=== PATIENT | male | born 1970 | race Caucasian/White ===

== ENCOUNTER 2019-06-12 09:20 | Inpatient (IN) | payer BC ==
[2019-06-12] MEDS ORDERED: SODIUM CHLORIDE 0.9% 500 ML 500 ML IV STA (09:35)
--- NOTE | 2019-06-12 09:58 | ED ---
Arrhythmia/Palpitations HPI - General Chief Complaint: Arrhythmia/Palpitations Stated Complaint: palpitations Time Seen by Provider: 06/12/19 09:34 Source: patient, family, RN notes reviewed Mode of arrival: wheelchair Limitations: no limitations - History of Present Illness Initial Comments: 49-year-old male presents emergency Department chief complaint palpitations. Patient states it woke him up early this morning. Patient's states that it seemed to be irregular. Patient reports that he feeling that it was heart racing. Patient does have a history of high blood pressure did not take his dose yesterday blood pressure was elevated this morning he has taken his morning dose at this time. Patient reports no chest pain, shortness breath, dizziness, nausea, vomiting or diarrhea. Patient did have an episode of diaphoresis though he states he was in the car when this happened. Patient denies any blurred vision, numbness tingling, headache, blurred vision patient states he just feels off. - Related Data Allergies Allergy/AdvReac Type Severity Reaction Status Date / Time No Known Allergies Allergy Verified 06/12/19 09:27 Review of Systems ROS Statement: Those systems with pertinent positive or pertinent negative responses have been documented in the HPI. ROS Other: All systems not noted in ROS Statement are negative. Past Medical History Past Medical History: Diabetes Mellitus, Hypertension History of Any Multi-Drug Resistant Organisms: None Reported Additional Past Surgical History / Comment(s): foot bone removed, plantar fascitis Past Psychological History: No Psychological Hx Reported Smoking Status: Never smoker Past Alcohol Use History: Occasional Past Drug Use History: None Reported General Exam Limitations: no limitations General appearance: alert, in no apparent distress Head exam: Present: atraumatic, normocephalic, normal inspection Eye exam: Present: normal appearance, PERRL, EOMI. Absent: scleral icterus, conjunctival injection, periorbital swelling ENT exam: Present: normal exam, normal oropharynx, mucous membranes moist Neck exam: Present: normal inspection, full ROM. Absent: tenderness, meningismus, lymphadenopathy Respiratory exam: Present: normal lung sounds bilaterally. Absent: respiratory distress, wheezes, rales, rhonchi, stridor Cardiovascular Exam: Present: tachycardia, irregular rhythm, normal heart sounds. Absent: regular rate, normal rhythm, systolic murmur, diastolic murmur, rubs, gallop, clicks GI/Abdominal exam: Present: soft, normal bowel sounds. Absent: distended, tenderness, guarding, rebound, rigid Neurological exam: Present: alert, oriented X3, CN II-XII intact, reflexes normal. Absent: motor sensory deficit Skin exam: Present: warm, dry, intact, normal color. Absent: rash Course Vital Signs 06/12/19 09:27 Temperature 97.4 F L Pulse Rate 77 Respiratory 18 Rate Blood Pressure 157/93 O2 Sat by Pulse 100 Oximetry EKG Findings - EKG Comments: EKG Findings:: EKG performed at 10:04 A. fib with RVR rate 150 QRS 72 QT status [id number] Medical Decision Making - Medical Decision Making 49-year-old male presents emergency Department for palpitations. Patient found to be in A. fib with RVR. Cardizem was ordered. Patient has had proximal A. fib in emergency department. Patient will be admitted on heparin per cardiology evaluation - Lab Data Result diagrams: 06/12/19 09:51 06/12/19 09:51 Lab Results 06/12/19 06/12/19 06/12/19 Range/Units 09:51 09:51 09:51 WBC 8.7 (3.8-10.6) k/uL RBC 5.70 (4.30-5.90) m/uL Hgb 16.2 (13.0-17.5) gm/dL Hct 48.1 (39.0-53.0) % MCV 84.5 (80.0-100.0) fL MCH 28.4 (25.0-35.0) pg MCHC 33.7 (31.0-37.0) g/dL RDW 14.5 (11.5-15.5) % Plt Count 276 (150-450) k/uL Neutrophils % 74 % Lymphocytes % 16 % Monocytes % 6 % Eosinophils % 1 % Basophils % 1 % Neutrophils # 6.5 (1.3-7.7) k/uL Lymphocytes # 1.4 (1.0-4.8) k/uL Monocytes # 0.5 (0-1.0) k/uL Eosinophils # 0.1 (0-0.7) k/uL Basophils # 0.1 (0-0.2) k/uL PT 10.7 (9.0-12.0) sec INR 1.0 (<1.2) APTT 29.6 (22.0-30.0) sec Sodium 141 (137-145) mmol/L Potassium 4.0 (3.5-5.1) mmol/L Chloride 105 (98-107) mmol/L Carbon Dioxide 28 (22-30) mmol/L Anion Gap 8 mmol/L BUN 19 (9-20) mg/dL Creatinine 0.95 (0.66-1.25) mg/dL Est GFR (CKD-EPI)AfAm >90 (>60 ml/min/1.73 sqM) Est GFR (CKD-EPI)NonAf >90 (>60 ml/min/1.73 sqM) Glucose 142 H (74-99) mg/dL Calcium 9.3 (8.4-10.2) mg/dL Magnesium 2.0 (1.6-2.3) mg/dL Total Bilirubin 1.7 H (0.2-1.3) mg/dL AST 25 (17-59) U/L ALT 26 (21-72) U/L Alkaline Phosphatase 55 (38-126) U/L Troponin I (0.000-0.034) ng/mL Total Protein 7.0 (6.3-8.2) g/dL Albumin 4.6 (3.5-5.0) g/dL 06/12/19 Range/Units 09:51 WBC (3.8-10.6) k/uL RBC (4.30-5.90) m/uL Hgb (13.0-17.5) gm/dL Hct (39.0-53.0) % MCV (80.0-100.0) fL MCH (25.0-35.0) pg MCHC (31.0-37.0) g/dL RDW (11.5-15.5) % Plt Count (150-450) k/uL Neutrophils % % Lymphocytes % % Monocytes % % Eosinophils % % Basophils % % Neutrophils # (1.3-7.7) k/uL Lymphocytes # (1.0-4.8) k/uL Monocytes # (0-1.0) k/uL Eosinophils # (0-0.7) k/uL Basophils # (0-0.2) k/uL PT (9.0-12.0) sec INR (<1.2) APTT (22.0-30.0) sec Sodium (137-145) mmol/L Potassium (3.5-5.1) mmol/L Chloride (98-107) mmol/L Carbon Dioxide (22-30) mmol/L Anion Gap mmol/L BUN (9-20) mg/dL Creatinine (0.66-1.25) mg/dL Est GFR (CKD-EPI)AfAm (>60 ml/min/1.73 sqM) Est GFR (CKD-EPI)NonAf (>60 ml/min/1.73 sqM) Glucose (74-99) mg/dL Calcium (8.4-10.2) mg/dL Magnesium (1.6-2.3) mg/dL Total Bilirubin (0.2-1.3) mg/dL AST (17-59) U/L ALT (21-72) U/L Alkaline Phosphatase (38-126) U/L Troponin I <0.012 (0.000-0.034) ng/mL Total Protein (6.3-8.2) g/dL Albumin (3.5-5.0) g/dL Critical Care Time Critical Care Time: Yes Total Critical Care Time: 35 Critical Care Time: Total 35 minutes of critical care time was initially evaluated patient, reviewed medications, review past medical history. Labs were ordered including CBC, CMP, troponin, EKG, chest x-ray. EKG shows evidence of A. fib RVR Cardizem was ordered 5 mg bolus of 5 mg per hour drip. Patient did convert in the emergency department. Patient's case discussed with admitting physician in which the patient remained for proximal A. fib, A. fib RVR with cardiology evaluation Disposition Clinical Impression: Paroxysmal atrial fibrillation with RVR Disposition: ADMITTED IP TO THIS HOSP Condition: Stable Referrals: Tristian Whiting DO [Primary Care Provider] - 1-2 days
[2019-06-12] MEDS ORDERED: HEPARIN SODIUM,PORCINE 5,000 UNIT/ML 1 ML VIAL IV ONE (10:01)
[2019-06-12] MEDS ORDERED: HEPARIN SODIUM,PORCINE 5,000 UNIT/ML 1 ML VIAL IV PRN ×2 (10:01→17:30)
[2019-06-12] MEDS ORDERED: DILTIAZEM DRIP BOLUS FROM BAG 1 MG SOLN IV ONE (10:02)
--- NOTE | 2019-06-12 10:17 | XR ---
EXAMINATION TYPE: XR chest 2V DATE OF EXAM: 06/12/2019 COMPARISON: None INDICATION: Dysrhythmia heart palpitations diaphoretic TECHNIQUE: Frontal and lateral views of the chest are obtained. FINDINGS: The heart size is normal. The pulmonary vasculature is normal. The lungs are clear. IMPRESSION: 1. No acute pulmonary process.
[2019-06-12] MEDS: HEPARIN SOD,PORK IN 0.45% NACL 25,000 UNIT in 0.45% NACL 1 250ML.BAG IV SCH ×2 (10:20→10:22)
[2019-06-12 10:24] LABS: ALT 26 U/L (21-72); AST 25 U/L (17-59); African American GFR (CKD) >90 (>60 ml/min/1.73 sqM); Albumin 4.6 g/dL (3.5-5.0); Alkaline Phosphatase 55 U/L (38-126); Anion Gap 8 mmol/L; Blood Urea Nitrogen 19 mg/dL (9-20); Calcium 9.3 mg/dL (8.4-10.2); Carbon Dioxide 28 mmol/L (22-30); Chloride 105 mmol/L (98-107); Glucose 142 mg/dL (74-99); Sodium 141 mmol/L (137-145); Total Bilirubin 1.7 mg/dL (0.2-1.3)
[2019-06-12 10:28] LABS: Basophils # (A) 0.1 k/uL (0-0.2); Basophils % (A) 1 %; Eosinophils # (A) 0.1 k/uL (0-0.7); Eosinophils % (A) 1 %; HCT 48.1 % (39.0-53.0); HGB 16.2 gm/dL (13.0-17.5); Lymphocytes # (A) 1.4 k/uL (1.0-4.8); Lymphocytes % (A) 16 %; MCH 28.4 pg (25.0-35.0); MCHC 33.7 g/dL (31.0-37.0); MCV 84.5 fL (80.0-100.0); Mean Platelet Volume 6.4; Monocytes # (A) 0.5 k/uL (0-1.0); Monocytes % (A) 6 %; Neutrophils # (A) 6.5 k/uL (1.3-7.7); Neutrophils % (A) 74 %; Platelet Count 276 k/uL (150-450); RDW 14.5 % (11.5-15.5); WBC 8.7 k/uL (3.8-10.6)
[2019-06-12] MEDS: DILTIAZEM 125 MG in SODIUM CHLORIDE 0.9% 100 ML IV SCH (10:32)
[2019-06-12 10:33] LABS: Partial Thromboplastin Time 29.6 sec (22.0-30.0); Prothrombin Time 10.7 sec (9.0-12.0)
[2019-06-12] MEDS ORDERED: NITROGLYCERIN SL TABS 0.4 MG TAB SUBLINGUAL PRN (10:43)
[2019-06-12 13:48] VITALS: BMI 26.6
--- NOTE | 2019-06-12 13:50 | P.HPIM ---
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 fib atrial fibrillation. Patient has history of hypertension used to be diabetic and not diabetic anymore since he lost the weight intentionally. Patient takes losartan and home. Patient denied any shortness of breath lightheadedness. Patient denied any chest pain. EKG showed A. fib with rapid and regular rate patient was not given Cardizem and spontaneously converted to sinus rhythm. Patient the had another episode of paroxysmal A. fib I am starting him on beta kayleen patient was started on heparin. Patient's LUTHER D VASC score 1.echocardiogram will be obtained. He does not have any signs or symptoms of sepsis at this time. Review of Systems REVIEW OF SYSTEMS: CONSTITUTIONAL: No fever, no malaise, no fatigue. HEENT: No recent visual problems or hearing problems. Denied any sore throat. CARDIOVASCULAR: No chest pain, orthopnea, PND, no syncope. PULMONARY: No shortness of breath, no cough, no hemoptysis. GASTROINTESTINAL: No diarrhea, no nausea, no vomiting, no abdominal pain. NEUROLOGICAL: No headaches, no weakness, no numbness. HEMATOLOGICAL: Denies any bleeding or petechiae. GENITOURINARY: Denies any burning micturition, frequency, or urgency. MUSCULOSKELETAL/RHEUMATOLOGICAL: Denies any joint pain, swelling, or any muscle pain. ENDOCRINE: Denies any polyuria or polydipsia. The rest of the 14-point review of systems is negative. Past Medical History Past Medical History: Diabetes Mellitus, Hypertension History of Any Multi-Drug Resistant Organisms: None Reported Additional Past Surgical History / Comment(s): foot bone removed, plantar fascitis Past Psychological History: No Psychological Hx Reported Smoking Status: Never smoker Past Alcohol Use History: Occasional Past Drug Use History: None Reported Medications and Allergies Home Medications Medication Instructions Recorded Confirmed Type Losartan Potassium [Cozaar] 50 mg PO DAILY 06/12/19 06/12/19 History Magnesium Oxide 400 mg PO DAILY 06/12/19 06/12/19 History Meloxicam [Mobic] 15 mg PO DAILY 06/12/19 06/12/19 History Allergies Allergy/AdvReac Type Severity Reaction Status Date / Time No Known Allergies Allergy Verified 06/12/19 10:47 Physical Exam Vitals: Vital Signs Temp Pulse Resp BP Pulse Ox 06/12/19 12:36 98.8 F 78 18 132/97 99 06/12/19 11:30 82 18 123/101 98 06/12/19 10:45 89 18 129/94 99 06/12/19 10:00 133 H 119/91 98 06/12/19 09:27 97.4 F L 77 18 157/93 100 Intake and Output 06/11/19 06/12/19 06/12/19 22:59 06:59 14:59 Other: Weight 88.904 kg PHYSICAL EXAMINATION: GENERAL: The patient is alert and oriented x3, not in any acute distress. Well developed, well nourished. HEENT: Pupils are round and equally reacting to light. EOMI. No scleral icterus. No conjunctival pallor. Normocephalic, atraumatic. No pharyngeal erythema. No thyromegaly. CARDIOVASCULAR: S1 and S2 present. No murmurs, rubs, or gallops. PULMONARY: Chest is clear to auscultation, no wheezing or crackles. ABDOMEN: Soft, nontender, nondistended, normoactive bowel sounds. No palpable organomegaly. MUSCULOSKELETAL: No joint swelling or deformity. EXTREMITIES: No cyanosis, clubbing, or pedal edema. NEUROLOGICAL: Gross neurological examination did not reveal any focal deficits. SKIN: No rashes. Results CBC & Chem 7: 06/12/19 09:51 06/12/19 09:51 Labs: Abnormal Lab Results - Last 24 Hours (Table) 06/12/19 Range/Units 09:51 Glucose 142 H (74-99) mg/dL Total Bilirubin 1.7 H (0.2-1.3) mg/dL Assessment and Plan Plan: -new-onset atrial fibrillation with rapid ventricular rate: Patient will continue on anticoagulation monitored overnight patient spontaneously converted to sinus rhythm presently sinus rhythm with rate controlled patient was started on beta kayleen because of his couple episodes of in and out of A. fib which is probably proximal A. fib anticoagulation patient as per cardiology and patient, it appears like patient may just need aspirin -Hypertensionlosartan will be held and will monitor the blood pressure since patient is being started on beta kayleen hopefully will not require losartan and since he is losing weight may not require antidepressant medications. -History of diabetes mellitus not a medically more since his weight loss. will not require pharmacologic GI prophylaxis
[2019-06-12] MEDS: METOPROLOL TARTRATE 25 MG TAB PO SCH ×2 (13:57→21:34)
[2019-06-12 19:30] LABS: Glucose,Whole Blood 98 mg/dL (75-99)
[2019-06-13 04:38] LABS: Mean Platelet Volume 6.3; Platelet Count 267 k/uL (150-450)
[2019-06-13 04:40] VITALS: RESP 15
[2019-06-13 04:58] LABS: Cholesterol 159 mg/dL (<200); HDL Cholesterol 46 mg/dL (40-60); LDL Cholesterol,Calculated 90 mg/dL (0-99); Triglycerides 115 mg/dL (<150)
[2019-06-13 06:08] LABS: Glucose,Whole Blood 114 mg/dL (75-99)
--- NOTE | 2019-06-13 08:10 | P.CRDCN ---
<David Castro - Last Filed: 06/13/19 08:09> Review of Systems Review of systems Chest x-ray within normal limits Twelve-lead ECG on admission shows atrial fibrillation with RVR ventricular rates of 150 beats a minute narrow QRS Patient presented to the emergency room complaining of palpitations which woke him up on the morning of the admission. His rhythm seems to be irregular and he felt his heart was racing. His a history of hypertension. He denied any chest discomfort shortness of breath dizziness nausea He did have an episode of diaphoresis White count 8.7, hemoglobin 16.2, sodium 141 potassium 4.0 BUN 19 creatinine 0.95 Troponins normal, TSH 1.38 LDL 90, total cholesterol 159, triglycerides 115 and HDL 46 Past Medical History Past Medical History: Diabetes Mellitus, Hypertension History of Any Multi-Drug Resistant Organisms: None Reported Additional Past Surgical History / Comment(s): foot bone removed, plantar fascitis Past Anesthesia/Blood Transfusion Reactions: No Reported Reaction Past Psychological History: No Psychological Hx Reported Smoking Status: Never smoker Past Alcohol Use History: Occasional Past Drug Use History: None Reported - Past Family History Father Family Medical History: AFIB Medications and Allergies Home Medications Medication Instructions Recorded Confirmed Type Losartan Potassium [Cozaar] 50 mg PO DAILY 06/12/19 06/12/19 History Magnesium Oxide 400 mg PO DAILY 06/12/19 06/12/19 History Meloxicam [Mobic] 15 mg PO DAILY 06/12/19 06/12/19 History Apixaban [Eliquis] 5 mg PO BID #60 tab 06/13/19 Rx Hydrochlorothiazide [Hydrodiuril] 25 mg PO DAILY #30 tab 06/13/19 Rx Metoprolol Tartrate [Lopressor] 50 mg PO BID PRN 30 Days #60 tab 06/13/19 Rx Allergies Allergy/AdvReac Type Severity Reaction Status Date / Time No Known Allergies Allergy Verified 06/12/19 10:47 Physical Exam Vitals: Vital Signs Temp Pulse Pulse Resp BP BP Pulse Ox 06/13/19 04:30 97.6 F 51 L 15 117/77 98 06/13/19 04:00 65 16 06/13/19 00:00 97.4 F L 65 15 127/71 99 06/12/19 20:00 98.4 F 65 16 122/79 99 06/12/19 16:20 97.8 F 59 L 18 129/87 99 06/12/19 13:00 98.0 F 72 18 128/87 98 06/12/19 12:36 98.8 F 78 18 132/97 99 06/12/19 11:30 82 18 123/101 98 06/12/19 10:45 89 18 129/94 99 06/12/19 10:00 133 H 119/91 98 06/12/19 09:27 97.4 F L 77 18 157/93 100 Intake and Output 06/12/19 06/13/19 06/13/19 22:59 06:59 14:59 Intake Total 74.848 222 Balance 74.848 222 Intake: Intake, IV Titration 74.848 Amount Heparin Sod,Pork in 0.45% 74.848 NaCl 25,000 unit In 0.45 % NaCl 1 250ml.bag @ 11. 25 UNITS/KG/HR 10.002 mls /hr IV .Q24H [facility] Rx#: [id number] Oral 222 Other: Voiding Method Toilet Toilet # Voids 1 1 Weight 97.2 kg Results 06/13/19 04:13 06/12/19 09:51 Cardiac Enzymes 06/12/19 06/12/19 06/12/19 Range/Units 09:51 09:51 16:45 AST 25 (17-59) U/L Troponin I <0.012 <0.012 (0.000-0.034) ng/mL 06/12/19 Range/Units 22:19 AST (17-59) U/L Troponin I <0.012 (0.000-0.034) ng/mL Coagulation 06/12/19 06/12/19 06/12/19 Range/Units 09:51 16:45 22:19 PT 10.7 (9.0-12.0) sec APTT 29.6 43.9 H 70.9 H (22.0-30.0) sec 06/13/19 Range/Units 04:13 PT (9.0-12.0) sec APTT 62.9 H (22.0-30.0) sec Lipids 06/13/19 Range/Units 04:13 Triglycerides 115 (<150) mg/dL Cholesterol 159 (<200) mg/dL HDL Cholesterol 46 (40-60) mg/dL CBC 06/12/19 06/13/19 Range/Units 09:51 04:13 WBC 8.7 (3.8-10.6) k/uL RBC 5.70 (4.30-5.90) m/uL Hgb 16.2 (13.0-17.5) gm/dL Hct 48.1 (39.0-53.0) % Plt Count 276 267 (150-450) k/uL Comprehensive Metabolic Panel 06/12/19 Range/Units 09:51 Sodium 141 (137-145) mmol/L Potassium 4.0 (3.5-5.1) mmol/L Chloride 105 (98-107) mmol/L Carbon Dioxide 28 (22-30) mmol/L BUN 19 (9-20) mg/dL Creatinine 0.95 (0.66-1.25) mg/dL Glucose 142 H (74-99) mg/dL Calcium 9.3 (8.4-10.2) mg/dL AST 25 (17-59) U/L ALT 26 (21-72) U/L Alkaline Phosphatase 55 (38-126) U/L Total Protein 7.0 (6.3-8.2) g/dL Albumin 4.6 (3.5-5.0) g/dL Current Medications Generic Name Dose Route Start Last Admin Trade Name Freq PRN Reason Stop Dose Admin Aspirin 325 mg 06/13/19 09:00 Aspirin PO DAILY [facility] Heparin Sodium (Porcine) 0 unit 06/12/19 17:30 06/12/19 17:48 Heparin IV 2,200 unit PER PROTOCOL PRN Administration Low PTT Protocol Diltiazem HCl 125 mg/ Sodium 125 mls @ 5 mls/hr 06/12/19 10:15 Chloride IV .Q24H [facility] 5 MG/HR Heparin Sodium/Sodium Chloride 250 mls @ 10.002 mls/hr 06/12/19 10:15 06/12/19 17:49 25,000 unit/ Sodium Chloride IV 13.25 units/kg/hr .Q24H [facility] 11.78 mls/hr Titration Protocol 11.25 UNITS/KG/HR Magnesium Oxide 400 mg 06/13/19 09:00 Mag-Ox PO DAILY [facility] Metoprolol Tartrate 25 mg 06/12/19 13:15 06/12/19 21:34 Lopressor PO 25 mg BID [facility] Administration Nitroglycerin 0.4 mg 06/12/19 10:43 Nitrostat SUBLINGUAL Q5M PRN Chest Pain Intake and Output 06/12/19 06/13/19 06/13/19 22:59 06:59 14:59 Intake Total 74.848 222 Balance 74.848 222 Intake: Intake, IV Titration 74.848 Amount Heparin Sod,Pork in 0.45% 74.848 NaCl 25,000 unit In 0.45 % NaCl 1 250ml.bag @ 11. 25 UNITS/KG/HR 10.002 mls /hr IV .Q24H [facility] Rx#: [id number] Oral 222 Other: Voiding Method Toilet Toilet # Voids 1 1 Weight 97.2 kg 06/13/19 04:13 06/12/19 09:51 <Nelda Peterson - Last Filed: 06/13/19 13:38> History of Present Illness History of present illness: This is Nelda Peterson PA-C dictating a consult on this patient The patient was interviewed and examined by me as well as by Dr. Castro Case discussed with Dr. Castro and he agrees with the plan of care IMPRESSION / ASSESSMENT: Atrial fibrillation with RVR, spontaneous conversion to normal sinus rhythm Hypertension, BP elevated at home Diabetes, diet controlled Sleep apnea on CPAP PLAN: CHADS-VASC score = 2, anticoagulation indicated, discussed with patient, start eliquis 5 mg BID, can stop heparin Continue to monitor for more episodes of atrial fibrillation, can use Lopressor 50 mg PO for rate control if needed Start home dose of losartan 50 mg daily, add hydrochlorothiazide 25 mg daily for blood pressure control Stop aspirin, hold metoprolol unless patient goes back into afib with RVR outpatient cardiac workup HPI Patient is a 49-year-old male past medical history of hypertension,diabetes, and sleep apnea on CPAP who presented to the emergency department with complaints of palpitations. He woke up on Thursday night at 3:00 in the morning to use the bathroom and noticed that he felt "funny". He states he felt like his heart was racing. Denies any chest pain, shortness of breath, lightheadedness, dizziness, syncope. He has never had an episode like this before. He states he drinks a glass of water and went back to sleep. When he woke up the next morning he continued to have the same symptoms. He states he checked his blood pressure and it was in the "130s over 100s". His symptoms resolved in the afternoon. The following morning he had another episode of palpitations so he came to the hospital. He was found to be in atrial fibrillation with RVR. He converted spontaneously. Today he feels well, no further episodes of palpitations, denies any chest pain, shortness of breath, dizziness, lightheadedness, syncope. Patient states he drinks about 2-3 beers, 2-3 days a week, does admit to drinking more than usual tonight before his first episode of atrial fibrillation History of smoking, quit 20 years ago ROS: No fevers, chills or rigors, no cough, phlegm or expectoration, no nausea, vomiting or diarrhea, no hematuria, dysuria, no musculoskeletal complaints, no strokes or seizures, no skin lesions. EXAMINATION: Afebrile, pulse 72, blood pressure 115/83, respirations 15, oxygen saturation 97% on room air Patient seen and examined lying comfortably in bed, in no acute distress Heart regular rate and rhythm, normal S1, normal S2, no murmurs appreciated Lungs are clear to auscultation bilaterally, no rhonchi, no wheezing, no crackles No elevated JVD, no carotid bruits appreciated No lower extremity edema REVIEW OF LABS, ECG & MEDICAL DATA Initial EKG revealed atrial fibrillation with RVR Telemetry shows sinus rhythm overnight, no further episodes of atrial fibrillation noted WBC 8.7, hemoglobin 16.2, electrolytes within normal limits, BUN 19, creatinine 0.95, troponin negative 3, TSH within normal limits LDL 90, cholesterol 159, triglycerides 115, HDL 46 Echo showed LV systolic function 60-65%. RV mildly enlarged, no significant v alvular abnormalities Physical Exam Vitals: Vital Signs Temp Pulse Pulse Resp BP BP Pulse Ox 06/13/19 08:00 98.1 F 72 115/83 97 06/13/19 04:30 97.6 F 51 L 15 117/77 98 06/13/19 04:00 65 16 06/13/19 00:00 97.4 F L 65 15 127/71 99 06/12/19 20:00 98.4 F 65 16 122/79 99 06/12/19 16:20 97.8 F 59 L 18 129/87 99 06/12/19 13:00 98.0 F 72 18 128/87 98 06/12/19 12:36 98.8 F 78 18 132/97 99 Intake and Output 06/12/19 06/13/19 06/13/19 22:59 06:59 14:59 Intake Total 74.848 397.152 Balance 74.848 397.152 Intake: Intake, IV Titration 74.848 175.152 Amount Heparin Sod,Pork in 0.45% 74.848 175.152 NaCl 25,000 unit In 0.45 % NaCl 1 250ml.bag @ 11. 25 UNITS/KG/HR 10.002 mls /hr IV .Q24H [facility] Rx#: [id number] Oral 222 Other: Voiding Method Toilet Toilet # Voids 1 1 Weight 97.2 kg Results 06/13/19 04:13 06/12/19 09:51 Cardiac Enzymes 06/12/19 06/12/19 Range/Units 16:45 22:19 Troponin I <0.012 <0.012 (0.000-0.034) ng/mL Coagulation 06/12/19 06/12/19 06/13/19 Range/Units 16:45 22:19 04:13 APTT 43.9 H 70.9 H 62.9 H (22.0-30.0) sec Lipids 06/13/19 Range/Units 04:13 Triglycerides 115 (<150) mg/dL Cholesterol 159 (<200) mg/dL HDL Cholesterol 46 (40-60) mg/dL CBC 06/13/19 Range/Units 04:13 Plt Count 267 (150-450) k/uL Current Medications Generic Name Dose Route Start Last Admin Trade Name Freq PRN Reason Stop Dose Admin Aspirin 325 mg 06/13/19 09:00 06/13/19 08:32 Aspirin PO 325 mg DAILY [facility] Administration Heparin Sodium (Porcine) 0 unit 06/12/19 17:30 06/12/19 17:48 Heparin IV 2,200 unit PER PROTOCOL PRN Administration Low PTT Protocol Diltiazem HCl 125 mg/ Sodium 125 mls @ 5 mls/hr 06/12/19 10:15 06/13/19 11:33 Chloride IV Not Given .Q24H [facility] 5 MG/HR Heparin Sodium/Sodium Chloride 250 mls @ 10.002 mls/hr 06/12/19 10:15 06/13/19 09:33 25,000 unit/ Sodium Chloride IV 13.25 units/kg/hr .Q24H [facility] 11.78 mls/hr Administration Protocol 11.25 UNITS/KG/HR Magnesium Oxide 400 mg 06/13/19 09:00 06/13/19 08:32 Mag-Ox PO 400 mg DAILY [facility] Administration Metoprolol Tartrate 25 mg 06/12/19 13:15 06/13/19 08:32 Lopressor PO 25 mg BID [facility] Administration Nitroglycerin 0.4 mg 06/12/19 10:43 Nitrostat SUBLINGUAL Q5M PRN Chest Pain Intake and Output 06/12/19 06/13/19 06/13/19 22:59 06:59 14:59 Intake Total 74.848 397.152 Balance 74.848 397.152 Intake: Intake, IV Titration 74.848 175.152 Amount Heparin Sod,Pork in 0.45% 74.848 175.152 NaCl 25,000 unit In 0.45 % NaCl 1 250ml.bag @ 11. 25 UNITS/KG/HR 10.002 mls /hr IV .Q24H [facility] Rx#: [id number] Oral 222 Other: Voiding Method Toilet Toilet # Voids 1 1 Weight 97.2 kg 06/13/19 04:13 06/12/19 09:51
[2019-06-13] MEDS: DILTIAZEM 125 MG in SODIUM CHLORIDE 0.9% 100 ML IV SCH ×2 (08:31→11:33)
[2019-06-13] MEDS: METOPROLOL TARTRATE 25 MG TAB PO SCH (08:32)
[2019-06-13] MEDS ORDERED: ASPIRIN 325 MG TAB PO SCH (09:00)
[2019-06-13] MEDS ORDERED: MAGNESIUM OXIDE 400 MG TAB PO SCH (09:00)
[2019-06-13] MEDS: HEPARIN SOD,PORK IN 0.45% NACL 25,000 UNIT in 0.45% NACL 1 250ML.BAG IV SCH (09:33)
--- NOTE | 2019-06-13 10:52 | ECHOF ---
Referral Reason:afib MEASUREMENTS -------- HEIGHT: 182.9 cm WEIGHT: 97.1 kg BP: 117/77 RVIDd: 3.4 cm (< 3.3) IVSd: 1.3 cm (0.6 - 1.1) LVIDd: 4.6 cm (3.9 - 5.3) LVPWd: 1.2 cm (0.6 - 1.1) IVSs: 1.5 cm LVIDs: 3.2 cm LVPWs: 1.9 cm LA Diam: 3.6 cm (2.7 - 3.8) LAESV Index (A-L): 24.39 ml/m Ao Diam: 3.5 cm (2.0 - 3.7) AV Cusp: 2.4 cm (1.5 - 2.6) MV EXCURSION: 13.536 mm (> 18.000) MV EF SLOPE: 57 mm/s (70 - 150) EPSS: 0.7 cm MV E Arias: 0.85 m/s MV DecT: 218 ms MV A Arias: 0.80 m/s MV E/A Ratio: 1.07 RAP: 5.00 mmHg RVSP: 21.28 mmHg FINDINGS -------- Sinus rhythm. This was a technically good study. The left ventricular size is normal. There is mild concentric left ventricular hypertrophy. Overa ll left ventricular systolic function is normal with, an EF between 60 - 65 %. The right ventricle is mildly enlarged. Normal LA size by volume 22+/-6 ml/m2. The right atrium is normal in size. Interatrial and interventricular septum intact. The aortic valve is trileaflet and appears structurally normal. Mild mitral regurgitation is present. Mild tricuspid regurgitation present. Right ventricular systolic pressure is normal at < 35 mmHg. There is no pulmonic regurgitation present. The aortic root size is normal. Normal inferior vena cava with normal inspiratory collapse consistent with estimated right atrial pre ssure of 5 mmHg. The inferior vena cava is mildly dilated. There is no pericardial effusion. CONCLUSIONS -------- 1. Sinus rhythm. 2. This was a technically good study. 3. The left ventricular size is normal. 4. There is mild concentric left ventricular hypertrophy. 5. Overall left ventricular systolic function is normal with, an EF between 60 - 65 %. 6. The right ventricle is mildly enlarged. 7. Normal LA size by volume 22+/-6 ml/m2. 8. The right atrium is normal in size. 9. Interatrial and interventricular septum intact. 10. The aortic valve is trileaflet and appears structurally normal. 11. Mild mitral regurgitation is present. 12. Mild tricuspid regurgitation present. 13. Right ventricular systolic pressure is normal at < 35 mmHg. 14. There is no pulmonic regurgitation present. 15. The aortic root size is normal. 16. Normal inferior vena cava with normal inspiratory collapse consistent with estimated right atrial pressure of 5 mmHg. 17. The inferior vena cava is mildly dilated. 18. There is no pericardial effusion. [employer]: Juliana Gaytan RDCS
[2019-06-13 11:08] VITALS: TEMP 98.1
[2019-06-13 12:12] LABS: Glucose,Whole Blood 118 mg/dL (75-99)
--- NOTE | 2019-06-13 14:24 | P.DS ---
Providers Date of admission: 06/12/19 11:04 Expected date of discharge: 06/13/19 Attending physician: Kevin Bojorquez Consults: 06/12/19 10:43 Consult Physician Urgent Consulting Provider: David Castro Consult Reason/Comments: A. fib Do you want consulting provider notified?: Yes Primary care physician: [facility] Course: Final diagnosis New onset atrial fibrillation with rapid ventricular rate: Patient will be started on Eliquis 5 mg by mouth twice a day per cardiology Hypertension Diabetes mellitus, controlled with diet Discharge disposition The patient is being discharged in a stable condition with guarded prognosis to home and will follow-up with cardiology this week as they discussed. Per cardiology patient will be started on Eliquis for new onset atrial fibrillation, will restart losartan and hydrochlorothiazide, and metoprolol 50 mg twice a day when necessary. History of present illness This is a 49-year-old male who was admitted to the hospital new-onset A. fib with RVR which is resolved. Patient is going to be started on anticoagulation therapy and will follow-up with Dr. Castro as discussed this week. Patient will resume home medications and continue to monitor blood sugars as needed as his diabetes is diet controlled after his 52 pound weight loss. Patient denies any chest pain, shortness of breath, palpitations, or fevers at this time. Patient underwent an echocardiogram this morning which shows no pericardial effusions, ejection fraction between 60 and 65%, mildly enlarged right ventricle possibly due to hypertension, mild regurgitation of the mitral valve is present, and in sinus rhythm. Patient will like to go home today. Patient has been walking the halls in no acute distress and denies any chest pain or palpitations at this time. On exam the vital signs are stable. Cardio S1 and S2 are normal. Respiratory system is clear to auscultation. Abdomen is soft and non-tender. Nervous system shows no focal deficits and gait is steady. Please refer to the medication reconciliation sheet for list of medications. Patient Condition at Discharge: Stable Plan - Discharge Summary New Discharge Prescriptions: New Apixaban [Eliquis] 5 mg PO BID #60 tab Hydrochlorothiazide [Hydrodiuril] 25 mg PO DAILY #30 tab Metoprolol Tartrate [Lopressor] 50 mg PO BID PRN 30 Days #60 tab PRN Reason: See Comments Continue Meloxicam [Mobic] 15 mg PO DAILY Magnesium Oxide 400 mg PO DAILY Losartan Potassium [Cozaar] 50 mg PO DAILY Discharge Medication List Losartan Potassium [Cozaar] 50 mg PO DAILY 06/12/19 [History] Magnesium Oxide 400 mg PO DAILY 06/12/19 [History] Meloxicam [Mobic] 15 mg PO DAILY 06/12/19 [History] Apixaban [Eliquis] 5 mg PO BID #60 tab 06/13/19 [Rx] Hydrochlorothiazide [Hydrodiuril] 25 mg PO DAILY #30 tab 06/13/19 [Rx] Metoprolol Tartrate [Lopressor] 50 mg PO BID PRN 30 Days #60 tab 06/13/19 [Rx] Follow up Appointment(s)/Referral(s): David Castro MD [STAFF PHYSICIAN] - 1 Week (Follow-up with Dr. Castro/Nelda Peterson) Tristian Whiting DO [Primary Care Provider] - 1-2 days Activity/Diet/Wound Care/Special Instructions: Activity Limited until follow-up Continue current diet follow heart healthy diet As discussed may take metoprolol as needed Follow-up with Dr. Castro in 1 week as discussed pt has free 30 days of eliquis filled in [facility] pharmacy. pt eligible for $10/roshan harris CM provided Discharge Disposition: HOME SELF-CARE
[2019-06-13 15:36] VITALS: BP 121/80; PULSE 59
== END 2019-06-13 16:05 | disposition home or self-care (01) | DRG 310 ==
LOC: EC 09:20 → 3SCARD 11:04
PROVIDERS: ADMIT Hospitalist; ATTEND Hospitalist
DX: I48.0 Paroxysmal atrial fibrillation (principal); E11.9 Type 2 diabetes mellitus without complications; I08.1 Rheumatic disorders of both mitral and tricuspid valves; G47.30 Sleep apnea, unspecified; I10 Essential (primary) hypertension; R61 Generalized hyperhidrosis; Z79.01 Long term (current) use of anticoagulants; Z79.1 Long term (current) use of non-steroidal anti-inflammatories (NSAID); Z79.899 Other long term (current) drug therapy; Z98.890 Other specified postprocedural states; Z86.19 Personal history of other infectious and parasitic diseases; Z82.49 Family history of ischemic heart disease and other diseases of the circulatory system; Z99.89 Dependence on other enabling machines and devices
CPT/HCPCS: 36415; 71046; 80053; 80061; 83735; 84443; 84484; 85025; 85049; 85610; 85730; 93005; 93306; 96365; 96366; 96375; 96376; 99291

== ENCOUNTER 2020-04-23 17:14 | Emergency (ER) | payer BC ==
[2020-04-23 19:20] LABS: Basophils % (A) 0 %; Eosinophils % (A) 0 %; HGB 14.2 gm/dL (13.0-17.5); Lymphocytes # (A) 0.6 k/uL (1.0-4.8); Lymphocytes % (A) 5 %; MCH 28.8 pg (25.0-35.0); MCV 87.3 fL (80.0-100.0); Mean Platelet Volume 7.7; Monocytes # (A) 0.5 k/uL (0-1.0); Monocytes % (A) 4 %; Neutrophils # (A) 12.1 k/uL (1.3-7.7); Neutrophils % (A) 91 %; Platelet Count 240 k/uL (150-450); RBC 4.93 m/uL (4.30-5.90); RDW 12.6 % (11.5-15.5); WBC 13.4 k/uL (3.8-10.6)
[2020-04-23 19:30] LABS: Albumin 4.8 g/dL (3.5-5.0); Total Bilirubin 1.3 mg/dL (0.2-1.3); Total Protein 7.5 g/dL (6.3-8.2)
--- NOTE | 2020-04-23 20:12 | CT ---
EXAMINATION TYPE: CT abdomen pelvis w con DATE OF EXAM: 04/23/2020 COMPARISON: None HISTORY: LLQ pain CT DLP: 1689.7 mGycm Automated exposure control for dose reduction was used. CONTRAST: Performed with IV Contrast, patient injected with 100 mL of Isovue 300. Lung bases are clear. There is no pleural effusion. Heart size is normal. There is no pericardial eff usion. There is diffuse fatty infiltration of the liver. Spleen appears normal. Pancreas appears normal. Gal lbladder appears normal. Bile ducts are not dilated. Stomach has normal size and contour. There is no adrenal mass. There is left-sided hydronephrosis and delayed left pyelogram. There is 5 m m calculus in the proximal left ureter. There is left side perinephric edema. The right kidneys show satisfactory contrast opacification. There is no retroperitoneal adenopathy. Bladder distends smoothly. There is no inguinal hernia. There is no free fluid in the pelvis. Appendi x appears normal. There is no mesenteric edema. There is no ascites or free air. There is no sign of a bowel obstructio n. Lumbar vertebra have fairly normal spacing and alignment. Posterior elements are intact. Bony pelvis appears intact. IMPRESSION: Obstructing calculus proximal left ureter with left-sided hydronephrosis and perinephric edema. Mild fatty infiltration of the liver. Normal appendix.
[2020-04-23] MEDS ORDERED: KETOROLAC 30 MG/ML 1 ML VIAL IVP STA (20:34)
--- NOTE | 2020-04-23 20:47 | ED ---
Abdominal Pain HPI - General Chief Complaint: Abdominal Pain Stated Complaint: abd pain Time Seen by Provider: 04/23/20 18:26 Source: patient Mode of arrival: ambulatory Limitations: no limitations - History of Present Illness Initial Comments: 49-year-old male presenting for left-sided flank pain/abdominal pain x 2 days. Patient states for the past 1-2 days he has had left-sided flank and back pain he states he's had some nausea no diarrhea or vomiting. Patient denies any fevers he denies dysuria urgency frequency. Patient states he had a mild ache in his left testicle he states he has no pain at this time. Patient denies this occurring with heavy lifting denies a history of hernias. Patient denies noting any bulges or swelling of the testicles or groin. Patient denies noting any hematuria. He denies a history of diverticulitis. When pain persisted today he decided to present to the emergency room. Patient states the pain comes and goes fluctuating in intensity. - Related Data Home Medications Medication Instructions Recorded Confirmed Losartan Potassium [Cozaar] 50 mg PO DAILY 06/12/19 04/23/20 Magnesium Oxide 400 mg PO DAILY 06/12/19 04/23/20 Meloxicam [Mobic] 15 mg PO DAILY 06/12/19 04/23/20 Previous Rx's Medication Instructions Recorded Apixaban [Eliquis] 5 mg PO BID #60 tab 06/13/19 Hydrochlorothiazide [Hydrodiuril] 25 mg PO DAILY #30 tab 06/13/19 Ketorolac [Toradol] 10 mg PO Q8HR PRN 5 Days #15 tab 04/23/20 Ondansetron Odt [Zofran Odt] 4 mg PO Q8HR PRN 7 Days #21 tab 04/23/20 Tamsulosin HCl [Flomax] 0.4 mg PO DAILY 5 Days #5 capsule 04/23/20 Allergies Allergy/AdvReac Type Severity Reaction Status Date / Time No Known Allergies Allergy Verified 04/23/20 17:44 Review of Systems ROS Statement: Those systems with pertinent positive or pertinent negative responses have been documented in the HPI. ROS Other: All systems not noted in ROS Statement are negative. Past Medical History Past Medical History: Atrial Fibrillation, Diabetes Mellitus, Hypertension History of Any Multi-Drug Resistant Organisms: None Reported Past Surgical History: Orthopedic Surgery Additional Past Surgical History / Comment(s): foot bone removed, plantar fascitis Past Anesthesia/Blood Transfusion Reactions: No Reported Reaction Past Psychological History: No Psychological Hx Reported Smoking Status: Never smoker Past Alcohol Use History: Occasional Past Drug Use History: None Reported - Past Family History Father Family Medical History: AFIB General Exam - General Exam Comments Initial Comments: General: The patient is awake and alert, in no distress Eye: Pupils are equal, round and reactive to light, extra-ocular movements are intact. No nystagmus. There is normal conjunctiva bilaterally. No signs of icterus. Ears, nose, mouth and throat: There are moist mucous membranes and no oral lesions. Neck: The neck is supple, there is no tenderness or JVD. Cardiovascular: There is a regular rate and rhythm. No murmur, rub or gallop is appreciated. Respiratory: Lungs are clear to auscultation, respirations are non-labored, breath sounds are equal. No wheezes, stridor, rales, or rhonchi. Gastrointestinal: Soft, non-distended, non-tender abdomen without masses or organomegaly noted. There is no rebound or guarding present. NO CVA tenderness. Musculoskeletal: Normal ROM, no tenderness. Strength 5/5. Sensation intact. Pulses equal bilaterally 2+. Neurological: A&O x 3. CN II-XII intact grossly, There are no obvious motor or sensory deficits. Coordination appears grossly intact. Speech is normal. Skin: Skin is warm and dry and no rashes or lesions are noted. Psychiatric: Cooperative, appropriate mood & affect, normal judgment. Limitations: no limitations Course Vital Signs 04/23/20 04/23/20 04/23/20 17:40 20:43 21:20 Temperature 98 F 98.2 F Pulse Rate 93 80 91 Respiratory 18 20 18 Rate Blood Pressure 168/87 155/68 158/70 O2 Sat by Pulse 99 99 99 Oximetry Medical Decision Making - Medical Decision Making 50 mL presents today for chief complaint of left abdominal flank pain. Diverticulitis vs Stone. CT revealed kidney stone, 5mm, some edema noted. Patient does not appears toxic, afebrile. Mild leukocytosis. Urine no significant bacteremia. Does not appear to be a septic stone. Discussed CT findings/labs/UA with attending Dr. Walker who was agreeable to discharge with symptomatic treatment and urology f/u. Patient agreeable and discharged appearing well. Return parameters including any fevers chills or malaise worsening pain were discussed at length the patient who verbalizes understanding Also patient noted to have elevated blood glucose, discussed this with patient he states that he will f/u with PCP but has known DM. - Lab Data Result diagrams: 04/23/20 18:47 04/23/20 18:47 Lab Results 04/23/20 04/23/20 04/23/20 Range/Units 18:47 18:47 19:35 WBC 13.4 H (3.8-10.6) k/uL RBC 4.93 (4.30-5.90) m/uL Hgb 14.2 (13.0-17.5) gm/dL Hct 43.0 (39.0-53.0) % MCV 87.3 (80.0-100.0) fL MCH 28.8 (25.0-35.0) pg MCHC 33.0 (31.0-37.0) g/dL RDW 12.6 (11.5-15.5) % Plt Count 240 (150-450) k/uL Neutrophils % 91 % Lymphocytes % 5 % Monocytes % 4 % Eosinophils % 0 % Basophils % 0 % Neutrophils # 12.1 H (1.3-7.7) k/uL Lymphocytes # 0.6 L (1.0-4.8) k/uL Monocytes # 0.5 (0-1.0) k/uL Eosinophils # 0.0 (0-0.7) k/uL Basophils # 0.0 (0-0.2) k/uL Sodium 136 L (137-145) mmol/L Potassium 4.0 (3.5-5.1) mmol/L Chloride 99 (98-107) mmol/L Carbon Dioxide 28 (22-30) mmol/L Anion Gap 9 mmol/L BUN 24 H (9-20) mg/dL Creatinine 1.24 (0.66-1.25) mg/dL Est GFR (CKD-EPI)AfAm 78 (>60 ml/min/1.73 sqM) Est GFR (CKD-EPI)NonAf 68 (>60 ml/min/1.73 sqM) Glucose 246 H (74-99) mg/dL Calcium 10.0 (8.4-10.2) mg/dL Total Bilirubin 1.3 (0.2-1.3) mg/dL AST 45 (17-59) U/L ALT 32 (4-49) U/L Alkaline Phosphatase 83 (38-126) U/L Total Protein 7.5 (6.3-8.2) g/dL Albumin 4.8 (3.5-5.0) g/dL Amylase 91 (30-110) U/L Lipase 85 (23-300) U/L Urine Color Light Yellow Urine Appearance Clear (Clear) Urine pH 5.5 (5.0-8.0) Ur Specific [place] 1.017 (1.001-1.035) Urine Protein 1+ H (Negative) Urine Glucose (UA) 4+ H (Negative) Urine Ketones 1+ H (Negative) Urine Blood Moderate H (Negative) Urine Nitrite Negative (Negative) Urine Bilirubin Negative (Negative) Urine Urobilinogen <2.0 (<2.0) mg/dL Ur Leukocyte Esterase Negative (Negative) Urine RBC 14 H (0-5) /hpf Urine WBC <1 (0-5) /hpf Urine Mucus Rare H (None) /hpf Disposition Clinical Impression: Left renal stone, Left flank pain Disposition: HOME SELF-CARE Condition: Good Instructions (If sedation given, give patient instructions): Kidney Stones (ED) Additional Instructions: Please use medication as discussed. Please follow-up with urology in next week. If develop fever, uncontrolled pain/nausea immediately return to ER. Please return to emergency room if the symptoms increase or worsen or for any other concerns. Prescriptions: Tamsulosin HCl [Flomax] 0.4 mg PO DAILY 5 Days #5 capsule Ketorolac [Toradol] 10 mg PO Q8HR PRN 5 Days #15 tab PRN Reason: Severe Pain Ondansetron Odt [Zofran Odt] 4 mg PO Q8HR PRN 7 Days #21 tab PRN Reason: Nausea Is patient prescribed a controlled substance at d/c from ED?: No Referrals: Tristian Whiting DO [Primary Care Provider] - 1-2 days Jacob Amaya MD [STAFF PHYSICIAN] - 1-2 days Time of Disposition: 20:57
[2020-04-23 20:53] LABS: Appearance,Urine Clear (Clear); Bilirubin,Urine Negative (Negative); Blood,Urine Moderate (Negative); Color,Urine Light Yellow; Glucose,Urine (UA) 4+ (Negative); Ketones,Urine 1+ (Negative); Leukocyte Esterase,Urine Negative (Negative); Mucus,Urine Rare /hpf; Nitrite,Urine Negative (Negative); PH, Urine 5.5 (5.0-8.0); Protein,Urine 1+ (Negative); RBC,Urine 14 /hpf (0-5); Specific Gravity,Urine 1.017 (1.001-1.035); Urobilinogen,Urine <2.0 mg/dL (<2.0); WBC,Urine <1 /hpf (0-5)
[2020-04-23] MEDS ORDERED: ONDANSETRON 4 MG ODT STARTER PACK 2 TAB BTL PO STA (20:56)
[2020-04-23] MEDS ORDERED: TAMSULOSIN 0.4 MG CAP.ER.24H PO STA (21:02)
[2020-04-23 21:42] VITALS: BP 158/70; PULSE 91; RESP 18; TEMP 98.2
== END 2020-04-23 21:20 | disposition home or self-care (01) ==
LOC: EC 17:14
DX: N13.2 Hydronephrosis with renal and ureteral calculous obstruction (principal); D72.829 Elevated white blood cell count, unspecified; I10 Essential (primary) hypertension; Z79.1 Long term (current) use of non-steroidal anti-inflammatories (NSAID); Z79.899 Other long term (current) drug therapy
CPT/HCPCS: 36415; 80053; 82150; 83690; 85025; 81001; 74177; 99284; 96374; J1885; S0119; Q9967

== ENCOUNTER → 2020-04-26 | Outpatient (CLI) | payer BC ==
--- NOTE | 2020-04-26 16:22 | XR ---
KUB HISTORY: N 20.1, left renal calculus, left-sided pain Frontal KUB submitted on 2 images [address] prior CT abdomen pelvis dated 04/23/2020 There is a calcification at the level of the ureterovesical Junction in the left hemipelvis measuring approximate 4 to 5 mm. There is no bowel obstruction or pneumoperitoneum. IMPRESSION: There is been interval migration of the proximal ureteral calculus to the level in the re gion of the distal ureter
== END | disposition home or self-care (01) ==
LOC: RADXRMAIN 15:44
PROVIDERS: ATTEND Urology
DX: N20.1 Calculus of ureter (principal)
CPT/HCPCS: 74018

== ENCOUNTER → 2024-06-08 | Outpatient (CLI) | payer BC ==
--- NOTE | 2024-06-08 15:30 | XR ---
EXAMINATION TYPE: XR abdomen 2V DATE OF EXAM: 06/08/2024 3:26 PM CLINICAL INDICATION:Male, 54 years old with history of [id number] RLQ PAIN; [facility] COMPARISON: 04/18/2020. TECHNIQUE: Two views of the abdomen were obtained. FINDINGS: The bowel gas pattern is nonspecific without dilated loops of small or large bowel. There i s no evidence for organomegaly or pneumoperitoneum. The osseous structures are intact. No abnormal calcifications are present. Fecal material and gas are demonstrated throughout the colon and rectum. IMPRESSION: Nonspecific bowel gas pattern without radiographic evidence for acute process.
== END | disposition home or self-care (01) ==
LOC: RADXRYALE 15:11
PROVIDERS: ATTEND Physician Assistant Medical
DX: R10.31 Right lower quadrant pain (principal)
CPT/HCPCS: 74019